=== PATIENT | female | born 1975 | race Two or more races ===

== ENCOUNTER 2021-03-31 09:02 | Outpatient (CLI) | payer OTHER | END 2021-03-31 09:06 | disposition home or self-care (01) | LOC: SONOGRAMA 09:02 → RX STUDY 09:15 | DX: M54.2 Cervicalgia (principal); R10.13 Epigastric pain; E04.1 Nontoxic single thyroid nodule; R22.1 Localized swelling, mass and lump, neck; J30.1 Allergic rhinitis due to pollen; Z13.29 Encounter for screening for other suspected endocrine disorder; Z13.228 Encounter for screening for other metabolic disorders; Z11.59 Encounter for screening for other viral diseases; Z13.220 Encounter for screening for lipoid disorders; Z13.89 Encounter for screening for other disorder; Z12.11 Encounter for screening for malignant neoplasm of colon ==